=== PATIENT | female | born 1980 | race Caucasian/White ===

== ENCOUNTER 2019-11-06 09:40 | Emergency (ER) | payer BC ==
--- NOTE | 2019-11-06 10:06 | UC ---
Elbow Pain - HPI Summary HPI Summary: Patient presents to urgent care with complaint of left elbow pain. Patient states he was playing B last night when she had a fall on outstretched arm. Patient states she noted what looked like something popped laterally and then back when she pushed on it. Patient states she has ongoing discomfort. Patient has been taking ibuprofen since last night with little improvement. Patient's platelets. Patient states she has some tingling in her left thumb and index finger but no weakness. Patient denies any wrist pain or shoulder pain. Patient without any other injuries. Patient is right-hand dominant. Patient states she jammed his elbow about 3 weeks ago but seems to be better until last night. Patient states she stop her neck. Patient's medications is entered in the EMR by triage nurse reviewed this visit. - History of Current Complaint Chief Complaint: UCUpperExtremity Stated Complaint: LT ELBOW PAIN Time Seen by Provider: 11/06/19 09:52 Hx Obtained From: Patient Hx Last Menstrual Period: IUD in place Severity Initially: Moderate Severity Currently: Moderate Pain Intensity: 5 - Allergies/Home Medications Allergies/Adverse Reactions: Allergies Allergy/AdvReac Type Severity Reaction Status Date / Time No Known Allergies Allergy Verified 11/06/19 09:56 Home Medications: Home Medications Albuterol HFA INHALER* [Proair HFA Inhaler*] 2 puff .SEE ORDER ONCE PRN [History Confirmed 11/06/19] Ibuprofen [Advil] 800 mg PO ONCE PRN 04/22/14 [History Confirmed 11/06/19] Levonorgestrel (Iud) [Liletta IUD] 1 unit INTRAUTERI ONCE 11/06/19 [History Confirmed 11/06/19] PMH/Surg Hx/FS Hx/Imm Hx Previously Healthy: Yes - Surgical History Surgical History: Yes Surgery Procedure, Year, and Place: Knee surgery Left ACL replacement 1996. Tonsillectomy 1998 - Family History Known Family History: Positive: Non-Contributory - Social History Occupation: Employed Full-time Lives: With Family Alcohol Use: Occasionally Substance Use Type: None Smoking Status (MU): Current Some Day Smoker Amount Used/How Often: occasional Review of Systems All Other Systems Reviewed And Are Negative: No Constitutional: Positive: Negative Skin: Positive: Negative Respiratory: Positive: Negative Cardiovascular: Positive: Negative Musculoskeletal: Positive: Other: - left elbow Physical Exam - Summary Physical Exam Summary: Vital Signs Reviewed: Yes A+Ox3, no distress Eyes: Conjunctiva Clear ENT: Hearing grossly normal Neck: Positive: Supple Respiratory: Positive: No respiratory distress, No accessory muscle use + CTA throughout no w/r Cardiovascular: RRR nl s1, s2 no m/r CBT <2 sec 2+ radial, 2+ ulnar CBT < 2 sec Musculoskeletal Exam: holding in gentle flexion of elbow, no shoulder, clavicle pain + flex.ext wrist with pain in medial elbow, limited pronate/ supinate related to pain medial elbow Neurological: Positive: Alert, + thumb up, a ok, finger cross, finger spread 4 +/5 grasp related to pain in elbow noted decreased sensation thumb, index Psychological: Positive: Normal Response To examiner Skin: Positive: no rash, no ecchymosis Triage Information Reviewed: Yes Vital Signs: Initial Vital Signs Temp 99.6 F 11/06/19 09:52 Pulse 93 11/06/19 09:52 Resp 18 11/06/19 09:52 BP 115/68 11/06/19 09:52 Pulse Ox 100 11/06/19 09:52 Procedures - Splinting Left Upper Extremity Location: LUE - posterio UE Hand-Made Type: orthoglass Splint: left posterior UE - position of comfort Pre-Proc Neuro Vasc Exam: normal Post-Proc Neuro Vasc Exam: normal Splint Applied by Provider: Nichol Olsen Diagnostics - Radiology No standard instances Radiology Interpretation Completed By: Radiologist - Patient Name: MARVIN DERAS Medical Record#: [id number] Ordering Physician: Nichol Olsen MD Acct.#: [id number] : 1980 Age: 39 Sex: F Location: [facility] Exam Date: 11/06/19 1012 ADM Status: REG ER Order Information: ELBOW LEFT 3+ VWS Accession Number: [id number] CPT: 15155 HISTORY: left elbow pain s/p fall outstretch . COMPARISONS: None relevant available at the time of dictation. VIEWS: 2, Frontal and lateral views of the left elbow FINDINGS: BONE DENSITY: Normal. BONES: There is a probable impacted fracture of the proximal radius. JOINTS: There is no arthropathy. There is joint effusion ALIGNMENT: There is no dislocation. SOFT TISSUES: Unremarkable. OTHER FINDINGS: None. IMPRESSION: JOINT EFFUSION WITH PROBABLE IMPACTED FRACTURE OF THE PROXIMAL RADIUS. <Electronically signed by Vahid Galdamez MD in [place]> 11/06/19 1046 Dictated By: Vahid Galdamez MD Dictated Date/Time: 11/06/19 1045 Transcribed Date/Time: 11/06/19 1045 Copy to: CC:Nichol Olsen MD; Cristal Betancourt MD Imaging - [facility] Imaging - [facility] [address] [address] ph [phone]) ph ([phone]) ph ([phone]) This report is only to be considered final once signed by the Provider(s) as displayed in the "<Electronically Signed by >" field (s). Absence of a signature indicates the report is in a draft status and still needs to be finalized. In the event this document was created by someone other than the signing Provider, the individual initiating the document will be listed in the "Entered by:" or "Dictated by:" [place]. 1 of 1 Patient Name: MARVIN DERAS Medical Record#: [id number] Ordering Physician: Nichol Olsen MD Acct.#: [id number] : 1980 Age: 39 Sex: F Location: [facility] Exam Date: 11/06/19 1107 ADM Status: REG ER Order Information : CT EXTREMITY UPPER LEFT WO Accession Number: [id number] CPT: 16342 Indication: Right elbow injury. CT of the right elbow was obtained in the axial plane. Sagittal and coronal reconstructed images were obtained. There is a joint effusion noted. There is suggestion of a minimally displaced fracture of the posterior lateral aspect of the radial head. In addition there appears to be a small avulsion from the posterior capitellum. No other fractures are noted. IMPRESSION: Intra-articular fluid with avulsion off the posterior capitellum and likely minimally depressed fracture of the lateral aspect of the radial head. < Electronically signed by Candice Elliott MD in [place]> 11/06/19 1143 Dictated By: Candice Elliott MD Dictated Date/Time: 11/06/19 1140 Transcribed Date/Time: 11/06/19 1140 Copy to: CC:Nichol Olsen MD; Cristal Betancourt MD Imaging - [facility] Imaging - [facility] Imaging - [facility] [address] [facility] [address] [address] ph ([phone]) ph ([phone] ) ph ([phone]) This report is only to be considered final once signed by the Provider(s) as displayed in the "<Electronically Signed by >" field (s). Absence of a signature indicates the report is in a draft status and still needs to be finalized. In the event this document was created by someone other than the signing Provider, the individual initiating the document will be listed in the "Entered by:" or "Dictated by:" [place]. Re-Evaluation - Re-Evaluation First Eval Comment: pt returned from XRAY - had near syncopal episode with extension related to pain - pt states this has happened before - returned on stretcher - states currently pain 8/10 -no longer feels lightheaded. Pt positioned to comfort - elevated on pillows, ice applied. awaiting xray Second Eval Comment: reviewed xray. will check CT - then discuss with ortho- pt agreeable with plan. given APAP Third Eval Comment: REviewed CT With + fx. spoke with ortho office - will see pt at 1:30 today - splinted. d/c to ortho Elbow Pain Course/Dx - Course Course Of Treatment: Pt fell rollerder[place] last night pain right posteriir, medial elbow position of comfort partially flexed + ibuprofen this am not distal CSM intact pt drove self ice apap reassess - Differential Dx/Diagnosis Provider Diagnosis: Left elbow fracture Discharge ED - Sign-Out/Discharge Documenting (check all that apply): Patient Departure All imaging exams completed and their final reports reviewed: Yes - Discharge Plan Condition: Stable Disposition: HOME Patient Education Materials: Elbow Fracture (ED) Referrals: Cristal Betancourt MD [Primary Care Provider] - Becky Orosco MD [Medical Doctor] - (1:15pm TODAY - please arrive 15 minutes early for paperwork) Additional Instructions: - wear splint and sling until you are evaluated by orthopedics - you have an appointment TODAY at 1:15- please arrive 15mintues early - Okay to apply ice (Wrapped in a towel) 10 minutes at a time, 2-3 times a day Okay to alternate ibuprofen (Advil, Motrin) and Tylenol (acetaminophen) every 3 hours for pain or fever. Take with food. Do NOT take for more than 4-5 days. - Billing Disposition and Condition Condition: STABLE Disposition: Home
[2019-11-06] MEDS ORDERED: Acetaminophen TAB* 325 MG PO ONE (10:12)
[2019-11-06 11:05] VITALS: BP 100/56
== END 2019-11-06 12:37 | disposition home or self-care (01) ==
LOC: UCEAST 09:40
DX: M25.522 Pain in left elbow (principal); M25.422 Effusion, left elbow; W18.30XA Fall on same level, unspecified, initial encounter; Y93.51 Activity, roller skating (inline) and skateboarding; Y92.9 Unspecified place or not applicable; Z72.0 Tobacco use
CPT/HCPCS: 99213; A9270-GY; G0463